=== PATIENT | female | born 1975 | race Caucasian/White ===

== ENCOUNTER → 2022-03-12 | Outpatient (CLI) | payer BC | LOC: KOH-I 15:16 | DX: M25.552 Pain in left hip (principal); M25.561 Pain in right knee; R07.9 Chest pain, unspecified | CPT/HCPCS: 71046; 72170; 73502; 73564 ==

== ENCOUNTER → 2022-03-18 | Outpatient (CLI) | payer BC | LOC: CT 12:00 | DX: R79.89 Other specified abnormal findings of blood chemistry (principal) | CPT/HCPCS: 71275; Q9967 ==

== ENCOUNTER → 2022-03-22 | Outpatient (CLI) | payer BC | LOC: US 08:40 | DX: R79.89 Other specified abnormal findings of blood chemistry (principal) | CPT/HCPCS: 93971 ==